=== PATIENT | male | born 1935 | race African-American/Black ===

== ENCOUNTER 2021-07-15 12:22 | Emergency (ER) | payer MEDICARE, OTHER ==
[~2021-07-15] VITALS: Ht 182.9 cm; Wt 90.0 kg
[2021-07-15] MEDS ORDERED: NEOMY/BACITR/POLYMYXIN OINT PACKET. TP ONE (12:30)
[2021-07-15] MEDS ORDERED: DIPH,PERTUSS(ACELL),TET VAC/PF 0.5 ML SYRINGE. VAX IM ONE ×2 (12:45→12:48)
--- NOTE | 2021-07-15 13:29 | RAD ---
EXAMINATION: CT head and cervical spine without IV contrast INDICATION:86 years, fall, right for head contusion, COMPARISON: None TECHNIQUE: Spiral acquisition of contiguous images from the skull base to the vertex were obtained. C T of the cervical spine was obtained using contiguous spiral imaging from the skull base to the upper thoracic level. Sagittal and coronal 2D reformatted series were provided by the technologist. Soft t issue and bone window algorithms were reviewed. Exposure: One or more of the following individualized dose reduction techniques were utilized for thi s examination: 1. Automated exposure control 2. Adjustment of the mA and/or kV according to patient size 3. Use of iterative reconstruction technique. FINDINGS: CT HEAD: The ventricles are normal in size. Neither mass, midline shift, intracranial hemorrhage, acute/subacu te ischemic changes, nor extraaxial fluid collections are seen. There is moderate to severe brain par enchymal volume loss with mild associated ex vacuo dilation of the lateral ventricles. There is exten sive supratentorial periventricular hypodensities, indeterminate but most likely representing chronic microangiopathic disease. The paranasal sinuses, mastoid air cells, and middle ears are clear. The o rbital contents appear within normal limits. Graft small right forehead contusion. No underlying depr essed calvarial fracture. CT CERVICAL SPINE: There is severe multilevel degenerative changes most pronounced at C3-C7. There is also decreased bon e mineralization degraded evaluation for nondisplaced fractures. No displaced fracture, subluxation, nor traumatic spondylolisthesis is seen. Vertebral body height is relatively preserved. There is loss of intervertebral disc space at the C3-C7 levels. There is no evidence of a large intraspinal hemato ma. Chronic appearing fractures of the C6 and C7 spinous processes. Atheromatous atherosclerotic dise ase of the internal and external carotid arteries with no aneurysmal. There is a 1.2 cm hypodense nod ule in the left thyroid lobe. The prevertebral and paravertebral soft tissues are within normal limit s. The visualized lung apices are clear. IMPRESSION: CT HEAD: 1. No evidence of acute intracranial abnormality. 2. Extensive supratentorial periventricular white matter hypodensities, indeterminate but most likely representing chronic microangiopathic disease. 3. Small right forehead contusion with no underlying calvarial fracture. CT CERVICAL SPINE: 1. No evidence of fracture or traumatic spondylolisthesis of the cervical spine. 2. 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 Electronically signed by: Tyler Jordan DO (07/15/2021 1:27 PM) [id number]
--- NOTE | 2021-07-15 13:33 | RAD ---
EXAM: 3 Views Left Shoulder DATE: 07/15/2021 1:03 PM INDICATION: Reason: pain s/p fall / Spl. Instructions: / History: COMPARISON: No Prior FINDINGS: There is no evidence for acute fracture or dislocation. AC joint is congruent. AC joint degenerative changes are seen. Small glenohumeral osteophytes are seen with joint space narrowing. Humeral head is not high riding. IMPRESSION: 1. No acute fracture or dislocation. 2. Mild AC joint degenerative change. 3. Moderate glenohumeral joint degenerative change. Electronically signed by: Nickolas Stokes MD (07/15/2021 1:31 PM) [facility]
--- NOTE | 2021-07-15 13:34 | RAD ---
EXAM: 3 views of the right elbow DATE: 07/15/2021 1:03 PM INDICATION: Reason: pain s/p fall / Spl. Instructions: / History: COMPARISON: No Prior FINDINGS: No elbow joint effusion. No acute fracture or dislocation. Chronic deformity distal humerus likely ol d fracture. 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 No significant soft tissue swell ing. Decreased bone mineral density. IMPRESSION: 1. No acute fracture or dislocation. 2. Right elbow joint osteoarthritis. 3. Chronic deformity distal right humerus likely from old/healed fracture. Electronically signed by: Nickolas Stokes MD (07/15/2021 1:32 PM) [facility]
--- NOTE | 2021-07-15 13:45 | RAD ---
EXAM: AP pelvis, low pelvis, AP lateral views right hip DATE: 07/15/2021 1:03 PM INDICATION: Reason: pain s/p fall / Spl. Instructions: / History: . COMPARISON: No Prior FINDINGS: No acute fracture or dislocation. Bilateral hip joint osteoarthritis. Vascular calcifications are see n. SI joint degenerative changes are seen. Trochanteric enthesophytes at the greater trochanters. IMPRESSION: No evidence of acute fracture or dislocation. Given degree of osteopenia, if there is persistent clin ical concern for fracture, MRI is recommended. Electronically signed by: Nickolas Stokes MD (07/15/2021 1:42 PM) [facility]
--- NOTE | 2021-07-15 13:53 | PHYS DOC ---
Past Medical History Additional Past Medical Histor: prostate CA, PVD, falls, dysphagia, osteo myelitis Past Surgical History: Other Additional Past Surgical Histo: ankle sx Smoking Status: Current Some Day Smoker Alcohol Use: None General Adult EDM: Chief Complaint: MECHANICAL FALL HPI: HPI: Patient is a 86 year old [f__sex] who presents with [] Review of Systems: Review of Systems: Constitutional: Denies fever or chills Eyes: Denies redness or eye pain HENT: Denies nasal congestion or sore throat Respiratory: Denies cough or shortness of breath Cardiovascular: Denies chest pain or palpitations GI: Denies abdominal pain, nausea, or vomiting : Denies dysuria or hematuria Musculoskeletal: Denies back pain or joint pain Integument: Denies rash or skin lesions Neurologic: Denies headache, focal weakness or sensory changes Complete systems were reviewed and found to be within normal limits, except as documented in this note. Heart Score: C/O Chest Pain: N/A Current Medications: Current Medications Medications (Trade) Dose Ordered Sig/Hammad Start Time Stop Time Status Last Admin Dose Admin Diphtheria/ Tetanus/Acell Pertussis (ADACEL TDap SYRINGE) 0.5 ml STK-MED ONCE 07/15/21 12:48 07/15/21 12:48 DC Neomycin/ Polymyxin/ Bacitracin (Triple Antibiotic Ointment) 1 pkt 1X ONCE 07/15/21 12:30 07/15/21 12:39 DC 07/15/21 13:28 1 PKT Allergies: Allergies: Allergies Coded Allergies Type Severity Reaction Last Updated Verified lisinopril Allergy Intermediate 07/15/21 Yes meloxicam Allergy Intermediate 07/15/21 Yes Physical Exam: PE: Constitutional: Well developed, well nourished, no acute distress, non-toxic appearance HENT: Normocephalic, atraumatic Eyes: PERRL, EOMI, conjunctiva normal, no discharge Neck: Normal range of motion, no tenderness, supple Lungs & Thorax: No respiratory distress, equal chest rise and fall Abdomen: Soft, no tenderness Skin: Warm, dry, no erythema, no rash Back: No tenderness, no CVA tenderness Extremities: No tenderness, ROM intact, no edema Neurologic: Alert and oriented X 3, normal motor function, normal sensory function, no focal deficits noted Psychologic: Affect normal, judgment normal Current Patient Data: Vital Signs: Vital Signs Date Time Temp Pulse Resp B/P (MAP) Pulse Ox O2 Delivery O2 Flow Rate FiO2 07/15/21 12:34 98.3 71 16 199/88 (125) 98 Room Air 98.3 EKG: EKG: [] Radiology/Procedures: Radiology/Procedures: PROCEDURE: ELBOW RIGHT 3V EXAM: 3 views of the right elbow DATE: 07/15/2021 1:03 PM INDICATION: Reason: pain s/p fall / Spl. Instructions: / History: COMPARISON: No Prior FINDINGS: No elbow joint effusion. No acute fracture or dislocation. Chronic deformity distal humerus likely old fracture. 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 No significant soft tissue swelling. Decreased bone mineral density. IMPRESSION: 1. No acute fracture or dislocation. 2. Right elbow joint osteoarthritis. 3. Chronic deformity distal right humerus likely from old/healed fracture. Electronically signed by: Nickolas Stokes MD (07/15/2021 1:32 PM) [facility] PROCEDURE: CT HEAD AND CERVICAL SPINE WO EXAMINATION: CT head and cervical spine without IV contrast INDICATION:86 years, fall, right for head contusion, COMPARISON: None TECHNIQUE: Spiral acquisition of contiguous images from the skull base to the vertex were obtained. CT of the cervical spine was obtained using contiguous spiral imaging from the skull base to the upper thoracic level. Sagittal and coronal 2D reformatted series were provided by the technologist. Soft tissue and bone window algorithms were reviewed. Exposure: One or more of the following individualized dose reduction techniques were utilized for this examination: 1. Automated exposure control 2. Adjustment of the mA and/or kV according to patient size 3. Use of iterative reconstruction technique. FINDINGS: CT HEAD: The ventricles are normal in size. Neither mass, midline shift, intracranial hemorrhage, acute/subacute ischemic changes, nor extraaxial fluid collections are seen. There is moderate to severe brain parenchymal volume loss with mild associated ex vacuo dilation of the lateral ventricles. There is extensive supratentorial periventricular hypodensities, indeterminate but most likely representing chronic microangiopathic disease. The paranasal sinuses, mastoid air cells, and middle ears are clear. The orbital contents appear within normal limits. Graft small right forehead contusion. No underlying depressed calvarial fracture. CT CERVICAL SPINE: There is severe multilevel degenerative changes most pronounced at C3-C7. There is also decreased bone mineralization degraded evaluation for nondisplaced fractures. No displaced fracture, subluxation, nor traumatic spondylolisthesis is seen. Vertebral body height is relatively preserved. There is loss of intervertebral disc space at the C3-C7 levels. There is no evidence of a large intraspinal hematoma. Chronic appearing fractures of the C6 and C7 spinous processes. Atheromatous atherosclerotic disease of the internal and external carotid arteries with no aneurysmal. There is a 1.2 cm hypodense nodule in the left thyroid lobe. The prevertebral and paravertebral soft tissues are within normal limits. The visualized lung apices are clear. IMPRESSION: CT HEAD: 1. No evidence of acute intracranial abnormality. 2. Extensive supratentorial periventricular white matter hypodensities, indeterminate but most likely representing chronic microangiopathic disease. 3. Small right forehead contusion with no underlying calvarial fracture. CT CERVICAL SPINE: 1. No evidence of fracture or traumatic spondylolisthesis of the cervical spine. 2. 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 Electronically signed by: Tyler Jordan DO (07/15/2021 1:27 PM) [id number] PROCEDURE: SHOULDER 2+V LEFT EXAM: 3 Views Left Shoulder DATE: 07/15/2021 1:03 PM INDICATION: Reason: pain s/p fall / Spl. Instructions: / History: COMPARISON: No Prior FINDINGS: There is no evidence for acute fracture or dislocation. AC joint is congruent. AC joint degenerative changes are seen. Small glenohumeral osteophytes are seen with joint space narrowing. Humeral head is not high riding. IMPRESSION: 1. No acute fracture or dislocation. 2. Mild AC joint degenerative change. 3. Moderate glenohumeral joint degenerative change. Electronically signed by: Nickolas Stokes MD (07/15/2021 1:31 PM) UIDAVID PROCEDURE: HIP RIGHT 2V WITH PELVIS EXAM: AP pelvis, low pelvis, AP lateral views right hip DATE: 07/15/2021 1:03 PM INDICATION: Reason: pain s/p fall / Spl. Instructions: / History: . COMPARISON: No Prior FINDINGS: No acute fracture or dislocation. Bilateral hip joint osteoarthritis. Vascular calcifications are seen. SI joint degenerative changes are seen. Trochanteric enthesophytes at the greater trochanters. IMPRESSION: No evidence of acute fracture or dislocation. Given degree of osteopenia, if there is persistent clinical concern for fracture, MRI is recommended. Electronically signed by: Nickolas Stokes MD (07/15/2021 1:42 PM) [facility] Course & Med Decision Making: Course & Med Decision Making Pertinent Imaging studies reviewed. (See chart for details) Patient stable for discharge with outpatient follow-up with PCP. Discussed findings and plan with patient, who acknowledges understanding and agreement. Dragon Disclaimer: Dragon Disclaimer: This electronic medical record was generated, in whole or in part, using a voice recognition dictation system. Departure Departure Impression: Primary Impression: Fall Qualified Codes: W19.XXXA - Unspecified fall, initial encounter Additional Impressions: Scalp contusion Qualified Codes: S00.03XA - Contusion of scalp, initial encounter Elbow contusion Qualified Codes: S50.01XA - Contusion of right elbow, initial encounter Shoulder sprain Qualified Codes: S43.402A - Unspecified sprain of left shoulder joint, initial encounter Hip pain Skin tear Disposition: HOME / SELF CARE / HOMELESS Condition: STABLE Patient Instructions: Elbow Contusion, [id number], Facial or Scalp Contusion, [id number], Fall Prevention and Home Safety, [id number], Hip Pain, RICE - Routine Care for Injuries, [id number], Shoulder Pain, [id number], Skin Tear Care, [id number] Additional Instructions: ICE areas of discomfort 20 min on then leave off next 20 mins. Repeat several times daily as needed for next few days. Take over the counter Tylenol and/or Ibuprofen for pain or discomfort. Do not soak your wound. You may shower. Clean wound daily with soap and water. Change dressing 2 times daily. Use over the counter antibiotic ointment with each dressing change. DOMENIC RODRIGUEZ DO Jul 15, 2021 13:53
[2021-07-15 14:51] VITALS: BP 184/82
== END 2021-07-15 15:00 | disposition home or self-care (01) ==
LOC: ER 12:22
DX: S43.402A Unspecified sprain of left shoulder joint, initial encounter (principal); S00.03XA Contusion of scalp, initial encounter; S50.01XA Contusion of right elbow, initial encounter; M25.551 Pain in right hip; M54.2 Cervicalgia; R51.9 Headache, unspecified; F17.200 Nicotine dependence, unspecified, uncomplicated; Z88.6 Allergy status to analgesic agent; Z88.8 Allergy status to other drugs, medicaments and biological substances; W06.XXXA Fall from bed, initial encounter; Y93.89 Activity, other specified; Y92.89 Other specified places as the place of occurrence of the external cause; Y99.8 Other external cause status
CPT/HCPCS: 70450; 72125; 73030; 73080; 73502; 90471; 90715; 99285-25